=== PATIENT | male | born 1950 | race Caucasian/White ===

== ENCOUNTER 2018-01-27 10:05 | Emergency (ER) | payer MEDICARE, OTHER ==
[~2018-01-27] VITALS: Ht 175.3 cm; Wt 70.3 kg
[~2018-01-27 10:05] MED LIST: ATARAX25 MG ORAL; ATIVAN1 MG ORAL; HYDROCODON-ACE1 EAC4 PO; KENALOG 0.1% CR15 GM TOPIC; LAMICTAL100 MG ORAL; LAMICTAL150 MG ORAL; LAMICTAL25 MG ORAL; MECLIZINE HCL25 MG ORAL; NEXIUM40 MG ORAL; PAROXETINE HCL20 MG PO; PAXIL20 MG ORAL; PROCHLORPERAZINE5 MG ORAL; PROZAC20 MG ORAL; QUETIAPINE FUM400 MG ORAL; SEROQUEL200 MG ORAL; SYMBICORT 1601 PUFFS INH; TAMSULOSIN HCL0.4 MG ORAL; XANAX0.5 MG ORAL
[2018-01-27 10:32] VITALS: BP 133/86
[2018-01-27] MEDS ORDERED: Tetanus/Diptheria/Pertussis Vaccine 0.5ml Syr IM ONE (10:45)
[2018-01-27] MEDS ORDERED: CEPHALEXIN500 MG ORAL (11:33)
[2018-01-27] MEDS ORDERED: TYLENOL EXTRA500 MG ORAL (11:33)
[2018-01-27 11:40] VITALS: BP 133/86
--- NOTE | 2018-01-27 14:46 | Emergency Room Report ---
History of Present Illness General Chief Complaint: Laceration Source: Patient Present Illness HPI 67-year-old male presents to ED with laceration above the left eye. States that last night he was cut with a hockey stick while playing hockey. Tetanus unknown. Pain is throbbing, 7 out of 10, nonradiating. Denies any other injuries. No other aggravating relieving factors. Denies any other associated symptoms Allergies: Coded Allergies: No Known Allergies (Unverified , 06/19/13) Patient History Past Medical History: COPD Past Surgical History: none Pertinent Family History: none Immunizations: UTD Reviewed Nursing Documentation: PMH: Agreed; PSxH: Agreed Nursing Documentation-PMH Past Medical History: No History, Except For Hx COPD: Yes Review of Systems All Other Systems: negative except mentioned in HPI Physical Exam Vital Signs Date Time Temp Pulse Resp B/P (MAP) Pulse Ox O2 Delivery O2 Flow Rate FiO2 01/27/18 10:24 99.0 107 16 133/86 95 Room Air 99.0 Sp02 EP Interpretation: reviewed, normal General Appearance: no apparent distress, alert, GCS 15, non-toxic Head: normocephalic Eyes: bilateral eye normal inspection, bilateral eye PERRL ENT: normal ENT inspection Neck: normal inspection Respiratory: normal inspection Cardiovascular #1: normal inspection Gastrointestinal: normal inspection Rectal: deferred Genitourinary: no CVA tenderness Musculoskeletal: normal inspection Neurologic: alert, oriented x3, responsive, motor strength/tone normal, sensory intact, speech normal Psychiatric: normal inspection Skin: laceration - 2cm laceration to L eyebrow Lymphatic: normal inspection Procedures Laceration/Wound Repair Laceration/Wound Repair : Consent: Verbal Wound Location: other - L eyebrow Wound's Depth, Shape: linear Wound Explored: clean Betadine Prep?: Yes Wound Debrided: minimal Wound Repaired With: Dermabond Layer Closure?: No Sterile Dressing Applied?: Yes Splint Applied?: No Sling Applied?: No Patient Tolerated: Well Complications: None Medical Decision Making Diagnostic Impression: Primary Impression: Laceration ER Course Hospital Course 67-year-old M presents to ED s/p laceration to L eyebrow Clinical course Patient placed on stretcher. After initial history and physical I ordered tetanus shot. wound irrigated. dermabond applied to close the wound Diagnosis - laceration Stable and discharged to home with prescription for Tylenol. wound Care instructions given. Followup with PMD. Return to ED if any signs of infection develop Last Vital Signs Date Time Temp Pulse Resp B/P (MAP) Pulse Ox O2 Delivery O2 Flow Rate FiO2 01/27/18 11:40 99.0 88 16 133/86 95 Room Air 99.0 Status: improved Disposition: HOME, SELF-CARE Condition: Stable Scripts Acetaminophen* (TYLENOL EXTRA STRENGTH*) 500 Mg Tablet 500 MG ORAL Q8H PRN for Prn Headache/Temp > 101, #30 TAB 0 Refills Prov: Michael Trinidad MD 01/27/18 Referrals: PHILIP SOLARES (PCP) Patient Instructions: Facial Laceration, [id number] Michael Trinidad MD Jan 27, 2018 14:46
== END 2018-01-27 11:40 | disposition home or self-care (01) ==
LOC: EMR 11:00
DX: S01.112A Laceration without foreign body of left eyelid and periocular area, initial encounter (principal); W21.210A Struck by ice hockey stick, initial encounter; Y93.22 Activity, ice hockey; Y92.89 Other specified places as the place of occurrence of the external cause; Z23 Encounter for immunization; J44.9 Chronic obstructive pulmonary disease, unspecified
CPT/HCPCS: 90471; 90715; 99283

== ENCOUNTER 2020-07-11 12:59 | Emergency (ER) | payer MEDICARE, OTHER ==
[~2020-07-11] VITALS: Ht 175.3 cm; Wt 70.3 kg
[~2020-07-11 12:59] MED LIST changes: +CEPHALEXIN500 MG ORAL; +TYLENOL EXTRA500 MG ORAL
[2020-07-11 13:11] VITALS: BP 118/66
--- NOTE | 2020-07-11 13:11 | NUR ---
ED Nurse Note: Pt walked in to ED c/o anxiety. Per pt, he has not been sleeping x2 weeks. Pt also c/o SOB and neuropathy on bilateral lower legs. Pt was sent by Dr. Ferguson. AAOx4, verbally responsive. Not kendell ny distress. O2 at triage 97%.
[2020-07-11] MEDS ORDERED: LORazepam 1mg tab ORAL ONE (15:30)
[2020-07-11] MEDS ORDERED: ATIVAN2 MG ORAL (15:30)
[2020-07-11] MEDS ORDERED: NEURONTIN600 MG ORAL (15:30)
[2020-07-11 15:35] VITALS: BP 121/74
--- NOTE | 2020-07-11 15:35 | NUR ---
ED Nurse Note: Pt cleared by ERMD for discharge. DC instructions/prescription was given and explained to pt and verbalized understanding of teachings. All medical deviecs such as ID band removed. Pt is AAO x4, ambulatory and left with all personal belongings.
--- NOTE | 2020-07-11 17:20 | Emergency Room Report ---
History of Present Illness General Chief Complaint: Pain Source: Patient Present Illness HPI 69-year-old male presents for evaluation. Referred by PMD for feeling anxious. States he is unable to sleep. History of anxiety. Denies SI or HI. Also states he is got history of neuropathy. Takes OxyContin but ran out. Denies chest pain or shortness of breath. No other aggravating relieving factors. Denies any other associated symptoms Allergies: Coded Allergies: No Known Allergies (Unverified , 06/19/13) COVID-19 Screening Contact w/high risk pt: No Experienced COVID-19 symptoms?: No COVID-19 Testing performed ROSIN BARREL FILLER: No COVID-19 Screening: Negative COVID-19 COVID-19 Testing Source: 06/17/20 Patient History Past Medical History: COPD, psych hx Past Surgical History: none Pertinent Family History: none Social History: Denies: smoking, alcohol use, drug use Immunizations: UTD Reviewed Nursing Documentation: PMH: Agreed; PSxH: Agreed Nursing Documentation-PMH Past Medical History: No History, Except For Hx COPD: Yes Review of Systems All Other Systems: negative except mentioned in HPI Physical Exam Vital Signs Date Time Temp Pulse Resp B/P (MAP) Pulse Ox O2 Delivery O2 Flow Rate FiO2 07/11/20 13:06 98.2 106 17 118/66 (83) 97 Room Air Sp02 EP Interpretation: reviewed, normal General Appearance: no apparent distress, alert, GCS 15, non-toxic Head: normocephalic, atraumatic Eyes: bilateral eye normal inspection, bilateral eye PERRL ENT: hearing grossly normal, normal pharynx, no angioedema, normal voice Neck: full range of motion, supple/symm/no masses Respiratory: chest non-tender, lungs clear, normal breath sounds, speaking full sentences Cardiovascular #1: regular rate, rhythm, no edema Cardiovascular #2: 2+ carotid (R), 2+ carotid (L), 2+ radial (R), 2+ radial (L), 2+ dorsalis pedis (R), 2+ dorsalis pedis (L) Gastrointestinal: normal bowel sounds, non tender, soft, non-distended, no guarding, no rebound Rectal: deferred Genitourinary: normal inspection, no CVA tenderness Musculoskeletal: back normal, normal range of motion, gait/station normal, non- tender Neurologic: alert, motor strength/tone normal, oriented x3, sensory intact, responsive, speech normal Psychiatric: judgement/insight normal, memory normal, no suicidal/homicidal ideation, anxious Reflexes: 3+ bicep (R), 3+ bicep (L), 3+ tricep (R), 3+ tricep (L), 3+ knee (R), 3+ knee (L) Skin: no rash Lymphatic: no adenopathy Medical Decision Making Diagnostic Impression: Primary Impression: Anxiety Additional Impression: Neuropathy ER Course Hospital Course 69 yo M presents feeling anxious. unable to sleep. burning pain in feet. h/o neuropathy Differential diagnoses include: chronic pain, neuropathy anxiety Clinical course Patient placed in chair. After initial history physical exam reveals elderly male in no acute distress. Lungs clear. Abdomen soft. Patient mentating appropriately. No SI or HI. Maintaining good eye contact. Answering questions appropriately. Patient is intact. 5 out of 5 strength in lower extremities I reviewed cures. Patient receiving multiple narcotic medications on a monthly basis. I agreed to provide him with short course of Ativan. I declined prescribing any additional OxyContin. I agreed to short course of Neurontin. Discussed with his PMD. Safe for discharge close outpatient follow-up I. I feel this is a highly complex case requiring extensive working including EKG/Rhythm strip, Xray/CT/US, Blood/urine lab work, repeat exams while in ED, and administration of strong opiates/narcotics for pain control, admission to hospital or close patient follow up. Diagnosis - anxiety, neuropathy Stable and discharged to home with Rx Ativan, Neurontin. Followup with PMD. Return to ED if symptoms recur or worse Last Vital Signs Date Time Temp Pulse Resp B/P (MAP) Pulse Ox O2 Delivery O2 Flow Rate FiO2 07/11/20 15:35 98.2 95 16 121/74 98 Room Air Status: improved Disposition: HOME, SELF-CARE Condition: Stable Scripts Gabapentin* (NEURONTIN*) 600 Mg Tablet 600 MG ORAL EVERY 8 HOURS, #10 TAB Prov: Michael Trinidad MD 07/11/20 Lorazepam* (ATIVAN*) 2 Mg Tablet 2 MG ORAL THREE TIMES A DAY, #10 TAB Prov: Michael Trinidad MD 07/11/20 Patient Instructions: Panic Attacks, [id number] Michael Trinidad MD Jul 11, 2020 17:20
== END 2020-07-11 15:35 | disposition home or self-care (01) ==
LOC: EMR 14:51
DX: F41.9 Anxiety disorder, unspecified (principal); G62.9 Polyneuropathy, unspecified; J44.9 Chronic obstructive pulmonary disease, unspecified
CPT/HCPCS: 99282